=== PATIENT | female | born 1950 | race Caucasian/White ===

== ENCOUNTER → 2016-08-03 | Outpatient (CLI) | payer MEDICARE, OTHER ==
--- NOTE | 2016-08-03 08:27 | US ---
EXAMINATION TYPE: US abdomen complete DATE OF EXAM: 08/03/2016 COMPARISON: CT abdomen and pelvis September 16, 2015 CLINICAL HISTORY: K83.8 other specified dis of biliary tract. Abdominal pain EXAM MEASUREMENTS: Liver Length: 13.7 cm Gallbladder Wall: 0.2 cm CBD: 0.2 cm Spleen: 8.6 cm Right Kidney: 10.2 x 4.1 x 6.1 cm Left Kidney: 10.8 x 4.8 x 4.4 cm Pancreas: limited evaluation due to overlying bowel Liver: cystic area = 1.3 x 1.3 x 1.2cm Gallbladder: no evidence of stones as visualized Evidence for sonographic Boyle's sign: No CBD: wnl Spleen: appears wnl Right Kidney: no evidence of hydronephrosis Left Kidney: no evidence of hydronephrosis Upper IVC: wnl Abd Aorta: wnl Technical limitations due to large amount of overlying bowel content There is 1.2 cm round anechoic lesion likely reflecting simple cyst in the liver inferiorly. IMPRESSION: Suboptimal study without suspicious finding seen to account for patient's symptoms.
--- NOTE | 2016-08-03 10:07 | NM ---
EXAMINATION TYPE: NM hepatobiliary w EF DATE OF EXAM: 08/03/2016 COMPARISON: Abdominal ultrasound earlier today. HISTORY: Other unspecified disorder of biliary tract per order. Abdominal pain with heartburn and ref lux-like symptoms per patient. TECHNIQUE: After the intravenous administration of 4.8 mCi Tc 99m Mebrofenin hepatobiliary scintigrap hy is performed. Immediate images post injection. FINDINGS: There is satisfactory initial accumulation of tracer by the liver. The gallbladder is visualized wit hin 15 minutes. The small bowel activity is noted within 30 minutes. At one hour 8 ounces of oral e nsure plus is given to mimic CCK and gallbladder ejection fraction is calculated at 82 %, not deviate d from the normal range. Therefore there is no scintigraphic evidence of cystic or common bile duct obstruction to suggest acute cholecystitis. IMPRESSION: Ejection fraction is 82%, some consider this abnormal or a hyperkinetic response.
== END | disposition home or self-care (01) ==
LOC: RADUSMAIN 06:52
PROVIDERS: ATTEND Family Medicine
DX: K83.8 Other specified diseases of biliary tract (principal)
CPT/HCPCS: 76700; 78226; A9537

== ENCOUNTER 2016-11-11 06:51 | Day surgery (SDC) | payer MEDICARE, OTHER ==
[2016-11-09 15:50] VITALS: BMI 20.7
[~2016-11-11 06:51] MED LIST: LACTATED RINGERS 1,000 ML IV SCH; LIDOCAINE 1% 20 ML VIAL (10MG/ML) FOR IV START INTRADERMA PRN
[2016-11-11 07:05] VITALS: TEMP 98.1
[2016-11-11 07:09] VITALS: RESP 18
[2016-11-11] MEDS ORDERED: LACTATED RINGERS 1,000 ML IV ONE (07:10)
[2016-11-11] MEDS ORDERED: LIDOCAINE 1% INJ 10MG/ML (20 ML MDV) ONE (07:45)
[2016-11-11] MEDS ORDERED: PROPOFOL 10 MG/ML 20 ML VIAL IV ONE (07:45)
--- NOTE | 2016-11-11 08:17 | P.PCN ---
Date of Procedure: 11/11/16 Procedure(s) Performed: Preoperative Dx: Abdominal pain, reflux Postoperative Dx: Gastritis, duodenal diverticulum, small hiatal hernia, mild distal esophagitis Procedure: EGD with Bx Anesthesia: Sedation Endoscopist: Dr. Claros Specimens: Antrum, distal esophagus Endoscopic Procedure: The patient was on the endoscopy table in the left decubitus position. The Olympus gastroscope was inserted into the oropharynx and passed under direct visualization to the region of the third portion of the duodenum. From that point the scope was slowly withdrawn inspecting all surfaces carefully. There were no neoplastic inflammatory or polypoid lesions throughout the duodenum. The duodenal diverticulum was identified and free of inflammation. The pylorus was widely patent. The stomach was carefully inspected. There was mild gastritis present.. A biopsy of the antrum took place to rule out H. pylori. Retroflexion revealed a small hiatal hernia. At the distal esophagus mild distal esophagitis was present and a biopsy was taken. The esophagus was then carefully examined. There were no neoplastic inflammatory or polypoid lesions throughout the remainder of the esophagus. The patient was then taken to the recovery room in stable condition per anesthesia guidelines. Recommendations: Begin antiacid therapy. Suspect the patient's symptoms are related to reflux and esophageal spasm. Await biopsy results.
[2016-11-11 08:23] VITALS: BP 119/76; PULSE 77
== END 2016-11-11 08:38 | disposition home or self-care (01) ==
LOC: ORWHC2ENDO 06:51
PROVIDERS: ATTEND Surgery
DX: K21.0 Gastro-esophageal reflux disease with esophagitis (principal); K29.70 Gastritis, unspecified, without bleeding; K44.9 Diaphragmatic hernia without obstruction or gangrene; K57.10 Diverticulosis of small intestine without perforation or abscess without bleeding; Z98.0 Intestinal bypass and anastomosis status; Z79.899 Other long term (current) drug therapy; Z91.040 Latex allergy status; Z91.09 Other allergy status, other than to drugs and biological substances
CPT/HCPCS: 88305; 88342; 43239; J2001; J2704

== ENCOUNTER 2020-10-20 08:18 | Day surgery (SDC) | payer MEDICARE, OTHER ==
[2020-10-20 09:00] VITALS: RESP 16; TEMP 97.7
[2020-10-20] MEDS ORDERED: LIDOCAINE 1% (10MG/ML) FOR IV START INTRADERMA ONE (09:00)
[2020-10-20] MEDS: LACTATED RINGERS 1,000 ML IV SCH ×2 (09:02→09:23)
[2020-10-20] MEDS ORDERED: PROPOFOL 10 MG/ML 20 ML VIAL IV ONE (09:24)
--- NOTE | 2020-10-20 09:29 | P.GSHP ---
History of Present Illness H&P Date: 10/20/20 Chief Complaint: Colon cancer screening Patient here today for colonoscopy. Last colonoscopy 5 years ago. No bowel complaints. History of previous colon resection for diverticulitis. Patient's mother had colon cancer. Past Medical History Past Medical History: GERD/Reflux Additional Past Medical History / Comment(s): diverticulitis History of Any Multi-Drug Resistant Organisms: None Reported Past Surgical History: Bowel Resection, Hysterectomy Additional Past Surgical History / Comment(s): Bowel resection secondary to diverticulitis, COLONOSCOPY Past Anesthesia/Blood Transfusion Reactions: Motion Sickness, Postoperative Nausea & Vomiting (PONV) Additional Past Anesthesia/Blood Transfusion Reaction / Comment(s): DURING HYSTERECTOMY Smoking Status: Former smoker - Past Family History Mother Family Medical History: Cancer Additional Family Medical History / Comment(s): COLON CANCER Sister(s) Family Medical History: Cancer Additional Family Medical History / Comment(s): BREAST CANCER Father Family Medical History: Coronary Artery Disease (CAD), Vascular Disorder Brother(s) Family Medical History: Cancer, Coronary Artery Disease (CAD), Myocardial Infarction (MS) Additional Family Medical History / Comment(s): OPEN HEART SURGERY AT AGE 68 another brother at 60 with MS and another brother at 58 with arrhythmia Medications and Allergies Home Medications Medication Instructions Recorded Confirmed Type ALPRAZolam [Xanax] 0.25 mg PO DAILY PRN 08/07/13 10/20/20 History Allergies Allergy/AdvReac Type Severity Reaction Status Date / Time latex Allergy Rash/Hives Verified 10/20/20 08:46 nickel Allergy Rash/Hives Verified 10/20/20 08:46 Surgical - Exam Vital Signs Temp Pulse Resp BP Pulse Ox 97.7 F 81 16 138/69 100 10/20/20 08:58 10/20/20 08:58 10/20/20 08:58 10/20/20 08:58 10/20/20 08:58 Physical exam: General: Well-developed, well-nourished HEENT: Normocephalic, sclerae nonicteric Abdomen: Nontender, nondistended Extremities: No edema Neuro: Alert and oriented Assessment and Plan (1) Colon cancer screening Narrative/Plan: Will proceed with colonoscopy at this time Current Visit: Yes Status: Acute Code(s): Z12.11 - ENCOUNTER FOR SCREENING FOR MALIGNANT NEOPLASM OF COLON SNOMED Code(s): 593815619
--- NOTE | 2020-10-20 09:41 | P.PCN ---
Date of Procedure: 10/20/20 Procedure(s) Performed: PREOPERATIVE DIAGNOSIS: Colon cancer screening, family history of colon cancer POSTOPERATIVE DIAGNOSIS: Normal exam PROCEDURE: Colonoscopy ANESTHESIA: MAC SURGEON: Thomas Claros M.D. SPECIMENS: None ENDOSCOPIC PROCEDURE: The patient was placed on the endoscopy table in the left decubitus position. The Olympus colonoscope was inserted into the anus and passed under direct visualization to the base of the cecum. The appendiceal orifice was visualized. From that point the scope was slowly withdrawn inspecting all surfaces carefully. There were no neoplastic inflammatory or polypoid lesions throughout the cecum, ascending, transverse, descending, and rectum. The anastomosis between the colon and rectum was widely patent. There was no residual diverticulosis seen. The prep was slightly suboptimal. Digital rectal examination was normal. The patient was taken to the recovery room in stable condition per anesthesia guidelines. RECOMMENDATIONS: Resume diet. Follow-up colonoscopy in 5 years.
[2020-10-20 10:01] VITALS: BP 113/76; PULSE 80
== END 2020-10-20 10:21 | disposition home or self-care (01) ==
LOC: ORWHC2ENDO 08:18
PROVIDERS: ATTEND Surgery
DX: Z12.11 Encounter for screening for malignant neoplasm of colon (principal); K21.9 Gastro-esophageal reflux disease without esophagitis; Z80.0 Family history of malignant neoplasm of digestive organs; Z80.3 Family history of malignant neoplasm of breast; Z82.49 Family history of ischemic heart disease and other diseases of the circulatory system; Z87.891 Personal history of nicotine dependence; Z90.49 Acquired absence of other specified parts of digestive tract; Z91.040 Latex allergy status
CPT/HCPCS: G0121; J2704

== ENCOUNTER → 2023-01-19 | Outpatient (CLI) | payer MEDICARE, OTHER ==
--- NOTE | 2023-01-19 13:24 | US ---
EXAMINATION TYPE: US carotid duplex BILAT DATE OF EXAM: 01/19/2023 COMPARISON: NONE CLINICAL INDICATION: Female, 72 years old with history of R55 syncope; Dizzy / Lightheaded spells, Di fficulty breathing, former social smoker x 30 years TECHNIQUE: Carotid duplex ultrasound examination. Indirect Doppler criteria was utilized. 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 Elevated velocity within the left ICA b ut still within normal limits. IMPRESSION: No evidence for hemodynamically significant stenosis. Criteria for Assigning % of Stenosis / Diameter reduction (Estimation based on the indirect measurements of the internal carotid artery velocities (ICA PSV). 1. Normal (no stenosis)=ICA PSV < 125 cm/s: ratio < 2.0: ICA EDV<40 cm/s. 2. Less than 50% stenosis=ICA PSV < 125 cm/s: ratio < 2.0: ICA EDV<40 cm/s. 3. 50 to 69% stenosis=ICA PSV of 125 to 230 cm/s: ration 2.0 ? 4.0: ICA EDV 40-100 cm/s. 4. Greater than 70% stenosis to near occlusion= ICA PSV > 230 cm/s: ratio > 4.0: ICA EDV > 100 cm/s. 5. Near occlusion= ICA PSV velocities may be low or undetectable: variable ratio and ICA EDV. 6. Total occlusion=unable to detect flow.
== END | disposition home or self-care (01) ==
LOC: RADUSWWP 12:53
PROVIDERS: ATTEND Family Medicine
DX: R55 Syncope and collapse (principal); Z87.891 Personal history of nicotine dependence
CPT/HCPCS: 93880

== ENCOUNTER → 2023-02-02 | Outpatient (CLI) | payer MEDICARE, OTHER ==
--- NOTE | 2023-02-02 13:22 | BD ---
EXAMINATION TYPE: Axial Bone Density DATE OF EXAM: 02/02/2023 CLINICAL HISTORY: 72 years old Female. ICD-10 CODE: Z78.0 ASYMPTOMATIC MENOPAUSAL STATE Height: 64.8 Weight: 124 FRAX RISK QUESTIONS: nothing to note here RISK FACTORS HISTORY OF: Postmenopausal woman: yes, at about 51 yrs old Take estrogen and/or progesterone medications: only in the past for a short while Hyperparathyroidism: no Adrenal Insufficiency: no MEDICATIONS: Additional Medications: xanax, statin for cholesterol, multivitamin, Additional History: cholesterol, some anxiety, EXAM MEASUREMENTS: Bone mineral densitometry was performed using the Be Spotted System. Bone mineral density as measured about the Lumbar spine is: ----- L1-L4(G/cm2): 0.998 T Score Values are as follows: ----- L1: -2.0 ----- L2: -2.5 ----- L3: -1.5 ----- L4: -0.5 ----- L1-L4: -1.5 Z Score Values are as follows: ----- L1: 0.0 ----- L2: -0.5 ----- L3: 0.5 ----- L4: 1.5 ----- L1-L4: 0.5 Bone mineral density has: Decreased -6.8% since study of: 12.08.2015 Bone mineral density about the R hip (g/cm2): 0.837 Bone mineral density about the L hip (g/cm2): 0.816 T Score values are as follows: -----R Neck: -1.2 -----L Neck: -1.7 -----R Total: -1.4 -----L Total: -1.5 Z Score values are as follows: -----R Neck: 0.8 -----L Neck: 0.3 -----R Total: 0.4 -----L Total: 0.3 Bone mineral density has: Decreased -5.1% since study of: 12.08.2015 FRAX%s: The graph provided illustrates a 10.1% chance for a major osteoporotic fx and a 2.1% chance f or the hips probability for fx in 10 years time. IMPRESSION: Osteopenia (T Score between -2.5 and -1). There is slightly increased risk of fracture and the patient may be considered for treatment. Re-Screen 2-5 years. NOTE: T-SCORE=SD OF THE YOUNG ADULT MEAN.
== END | disposition home or self-care (01) ==
LOC: RADBDWWP 07:41
PROVIDERS: ATTEND Family Medicine
DX: M85.89 Other specified disorders of bone density and structure, multiple sites (principal); Z78.0 Asymptomatic menopausal state
CPT/HCPCS: 77080

== ENCOUNTER → 2023-08-16 | Outpatient (CLI) | payer MEDICARE, OTHER ==
--- NOTE | 2023-08-16 15:03 | MR ---
EXAMINATION TYPE: MR brain wo con DATE OF EXAM: 08/16/2023 2:55 PM COMPARISON: NONE HISTORY: Near syncope, wavy vision sometimes FINDINGS: The ventricles, basal cisterns and sulci overlying the cerebral convexities are mildly enlarged. There is evidence of mild periventricular white matter ischemic demyelination. Remote deep white matter insults are also noted. No acute edema is seen on diffusion weighted imaging. There is no evidence for midline shift or mass effect. Acute intracranial hemorrhage or extra-axial collection is not evident. The paranasal sinuses and mastoid air cells are well-aerated. IMPRESSION: Age-related atrophic and chronic small vessel ischemic change. No acute intracranial process at this time.
== END | disposition home or self-care (01) ==
LOC: RADMRIMAIN 13:55
PROVIDERS: ATTEND Family Medicine
DX: I67.82 Cerebral ischemia (principal); R55 Syncope and collapse
CPT/HCPCS: 70551